=== PATIENT | male | born 1945 | race African-American/Black ===

== ENCOUNTER 2021-04-05 22:57 | Inpatient (IN) | payer MEDICARE ==
[~2021-04-05] VITALS: Ht 175.3 cm; Wt 59.9 kg
[2021-04-05] MEDS ORDERED: ONDANSETRON HCL 4MG/2ML INJ IV STA (23:12)
[2021-04-05] MEDS ORDERED: MANNITOL 20% 250 ML IV ONE (23:15)
[2021-04-05] MEDS ORDERED: NICARDIPINE 100 MG in SODIUM CHLORIDE 0.9% 60 ML IV ONE (23:15)
[2021-04-05] MEDS ORDERED: DEXAMETHASONE 10 MG/ML VIAL IV ONE (23:15)
[2021-04-05] MEDS ORDERED: NICARDIPINE 40 MG/200 ML PREMIX 200 ML IV PRN (23:30)
[2021-04-05] MEDS ORDERED: LEVETIRACETAM 500MG PREMIX 100 ML IV ONE (23:30)
[2021-04-06] VITALS (88 sets, daily range): BP systolic 97–167; BP diastolic 51–76
[2021-04-06 00:14] LABS: BASOPHILS % 0.5 % (0.0-2.0); EOSINOPHILS % 3.9 % (0.0-5.0); HEMATOCRIT. 34.2 % (42.0-52.0); HEMOGLOBIN. 11.3 g/dL (14.0-18.0); LYMPHOCYTES % 36.8 % (20.0-50.0); MEAN CORPUSCULAR HEMOGLOBIN 32.1 pg (28.0-32.0); MEAN CORPUSCULAR VOLUME 96.8 fL (80.0-94.0); MEAN PLATELET VOLUME 9.4 fl (7.4-10.4); NEUTROPHILS % 47.8 % (40.0-76.0); PLATELET 156 x1000/uL (130-400); RED BLOOD CELL COUNT 3.53 mill/uL (4.7-6.1); RED CELL DISTRIBUTION WIDTH 15.5 % (11.6-14.6)
[2021-04-06 00:24] LABS: PROTHROMBIN TIME 10.9 sec (9.6-11.0)
[2021-04-06 00:41] LABS: CHLORIDE 108 mEq/L (98-107)
[2021-04-06] MEDS ORDERED: NICARDIPINE 100 MG in SODIUM CHLORIDE 0.9% 60 ML IV PRN (00:45)
[2021-04-06 00:48] LABS: LDL CHOLESTEROL 73 mg/dL (5-100)
[2021-04-06] MEDS: DEXT 5%/LACTATED RINGERS 1,000 ML IV SCH ×2 (02:01→18:13)
[2021-04-06] MEDS: NICARDIPINE 100 MG in SODIUM CHLORIDE 0.9% 60 ML IV PRN ×3 (02:05→18:12)
[2021-04-06] MEDS: DEXAMETHASONE 4MG/ML 1ML VIAL IV SCH ×4 (05:43→22:59)
[2021-04-06] MEDS ORDERED: LEVETIRACETAM 500MG PREMIX 100 ML IV SCH (09:00)
[2021-04-06 11:01] LABS: HEMATOCRIT 37.4 % (42.0-52.0); HEMOGLOBIN 12.3 g/dL (14.0-18.0); MEAN CORPUSCULAR HEMOGLOBIN 31.7 pg (28.0-32.0); MEAN CORPUSCULAR VOLUME 96.4 fL (80.0-94.0); PLATELET 174 x1000/uL (130-400); RED BLOOD CELL COUNT 3.89 mill/uL (4.7-6.1); RED CELL DISTRIBUTION WIDTH 15.4 % (11.6-14.6)
[2021-04-06 11:13] LABS: CHLORIDE 111 mEq/L (98-107)
[2021-04-06] MEDS: MORPHINE SULFATE 2 MG/ML CPJ (NOT FOR IM USE) IV PRN (15:09)
[2021-04-06] MEDS: LEVETIRACETAM 500MG PREMIX 100 ML IV SCH (20:21)
[2021-04-06] MEDS: ATORVASTATIN CALCIUM 40MG TABLET PO SCH (20:21)
[2021-04-07] VITALS (75 sets, daily range): BP systolic 82–161; BP diastolic 23–75
[2021-04-07] MEDS: DEXAMETHASONE 4MG/ML 1ML VIAL IV SCH ×2 (05:42→12:05)
[2021-04-07 06:01] LABS: BASOPHILS % 0.1 % (0.0-2.0); HEMATOCRIT. 35.7 % (42.0-52.0); HEMOGLOBIN. 11.5 g/dL (14.0-18.0); LYMPHOCYTES % 11.4 % (20.0-50.0); MEAN CORPUSCULAR HEMOGLOBIN 31.4 pg (28.0-32.0); MEAN CORPUSCULAR VOLUME 97.4 fL (80.0-94.0); MEAN PLATELET VOLUME 9.6 fl (7.4-10.4); MONOCYTES % 4.6 % (2.0-8.0); NEUTROPHILS % 83.9 % (40.0-76.0); PLATELET 163 x1000/uL (130-400); RED BLOOD CELL COUNT 3.67 mill/uL (4.7-6.1); RED CELL DISTRIBUTION WIDTH 15.6 % (11.6-14.6)
[2021-04-07 06:03] LABS: CHLORIDE 109 mEq/L (98-107)
[2021-04-07] MEDS: NICARDIPINE 100 MG in SODIUM CHLORIDE 0.9% 60 ML IV PRN ×2 (07:14→15:51)
[2021-04-07] MEDS: MORPHINE SULFATE 2 MG/ML CPJ (NOT FOR IM USE) IV PRN (07:41)
[2021-04-07] MEDS: LEVETIRACETAM 500MG PREMIX 100 ML IV SCH ×2 (09:21→20:55)
[2021-04-07] MEDS ORDERED: HYDRALAZINE 20MG/ML VIAL IV PRN (10:15)
[2021-04-07] MEDS: DEXT 5%/LACTATED RINGERS 1,000 ML IV SCH (11:37)
[2021-04-07] MEDS: MORPHINE SULFATE 4 MG/ML CPJ (NOT FOR IM USE) IV PRN ×5 (12:06→21:04)
[2021-04-07 12:48] LABS: CLARITY URINE CLEAR (CLEAR); COLOR URINE YELLOW (YELLOW); KETONES URINE NEGATIVE (NEGATIVE); LEUKOCYTE ESTERASE URINE NEGATIVE (NEGATIVE); NITRITE URINE NEGATIVE (NEGATIVE); OCCULT BLOOD URINE 2+ (NEGATIVE); PROTEIN URINE TRACE (NEGATIVE); SPECIFIC GRAVITY URINE 1.024 (1.005-1.030); UROBILINOGEN URINE 0.2 E.U./dL (0.2-1.0)
[2021-04-07 13:26] LABS: *AMPHETAMINES SCREEN URINE NEGATIVE (NEGATIVE); *BARBITURATES SCREEN URINE NEGATIVE (NEGATIVE); *BENZODIAZEPINES SCREEN URINE NEGATIVE (NEGATIVE); *COCAINE SCREEN URINE NEGATIVE (NEGATIVE); METHADONE URINE SCREEN NEGATIVE (NEGATIVE); OPIATES URINE SCREEN PRESUMTIVE POSITIVE (NEGATIVE)
[2021-04-07 13:27] LABS: CANNABINOID URINE SCREEN NEGATIVE (NEGATIVE); PHENCYCLIDINE URINE SCREEN NEGATIVE (NEGATIVE)
[2021-04-07] MEDS: ATORVASTATIN CALCIUM 40MG TABLET PO SCH (20:54)
[2021-04-08] VITALS (86 sets, daily range): BP systolic 111–160; BP diastolic 35–70
[2021-04-08] MEDS: NICARDIPINE 100 MG in SODIUM CHLORIDE 0.9% 60 ML IV PRN ×2 (00:26→09:19)
[2021-04-08] MEDS: DEXT 5%/LACTATED RINGERS 1,000 ML IV SCH ×2 (04:33→22:00)
[2021-04-08 05:57] LABS: HEMATOCRIT. 34.3 % (42.0-52.0); HEMOGLOBIN. 11.1 g/dL (14.0-18.0); MEAN CORPUSCULAR HEMOGLOBIN 31.4 pg (28.0-32.0); MEAN CORPUSCULAR VOLUME 97.3 fL (80.0-94.0); MEAN PLATELET VOLUME 9.5 fl (7.4-10.4); PLATELET 163 x1000/uL (130-400); RED BLOOD CELL COUNT 3.53 mill/uL (4.7-6.1); RED CELL DISTRIBUTION WIDTH 15.9 % (11.6-14.6)
[2021-04-08 06:00] LABS: CHLORIDE 110 mEq/L (98-107)
[2021-04-08] MEDS: LEVETIRACETAM 500MG PREMIX 100 ML IV SCH ×2 (09:09→20:19)
[2021-04-08] MEDS ORDERED: CLONIDINE 0.1MG TABLET PO PRN ×2 (10:15→21:45)
[2021-04-08] MEDS: AMLODIPINE 10MG TABLET PO SCH (10:24)
[2021-04-08] MEDS: LOSARTAN POTASSIUM 100 MG TABLET PO SCH (10:24)
[2021-04-08 12:45] LABS: PLATELET ESTIMATE NORMAL
[2021-04-08] MEDS: ATORVASTATIN CALCIUM 40MG TABLET PO SCH (20:19)
[2021-04-08] MEDS: MORPHINE SULFATE 4 MG/ML CPJ (NOT FOR IM USE) IV PRN (20:27)
[2021-04-08] MEDS ORDERED: HYDRALAZINE 20MG/ML VIAL IV PRN (21:45)
[2021-04-09] VITALS (96 sets, daily range): BP systolic 81–143; BP diastolic 40–125
[2021-04-09] MEDS: MORPHINE SULFATE 4 MG/ML CPJ (NOT FOR IM USE) IV PRN ×3 (04:01→11:28)
[2021-04-09] MEDS: NICARDIPINE 100 MG in SODIUM CHLORIDE 0.9% 60 ML IV PRN ×2 (05:58→16:20)
[2021-04-09] MEDS ORDERED: HYDRALAZINE HCL 100MG TABLET PO NR (08:45)
[2021-04-09] MEDS: LOSARTAN POTASSIUM 100 MG TABLET PO SCH (09:05)
[2021-04-09] MEDS: AMLODIPINE 10MG TABLET PO SCH (09:05)
[2021-04-09] MEDS: LEVETIRACETAM 500MG PREMIX 100 ML IV SCH ×2 (09:05→21:11)
[2021-04-09 09:38] LABS: BASOPHILS % 0.3 % (0.0-2.0); HEMATOCRIT. 36.2 % (42.0-52.0); HEMOGLOBIN. 12.3 g/dL (14.0-18.0); LYMPHOCYTES % 8.5 % (20.0-50.0); MEAN CORPUSCULAR HEMOGLOBIN 32.5 pg (28.0-32.0); MEAN PLATELET VOLUME 8.7 fl (7.4-10.4); MONOCYTES % 9.4 % (2.0-8.0); NEUTROPHILS % 81.8 % (40.0-76.0); PLATELET 179 x1000/uL (130-400); RED BLOOD CELL COUNT 3.78 mill/uL (4.7-6.1); RED CELL DISTRIBUTION WIDTH 15.1 % (11.6-14.6)
[2021-04-09 09:46] LABS: CHLORIDE 107 mEq/L (98-107)
[2021-04-09 09:51] LABS: PHOSPHORUS 2.2 mg/dL (2.5-4.9)
[2021-04-09] MEDS: DEXT 5%/LACTATED RINGERS 1,000 ML IV SCH (13:10)
[2021-04-09] MEDS: HYDRALAZINE HCL 100MG TABLET PO SCH ×2 (15:11→22:00)
[2021-04-09] MEDS: ATORVASTATIN CALCIUM 40MG TABLET PO SCH (21:11)
[2021-04-10] VITALS (75 sets, daily range): BP systolic 35–162; BP diastolic 21–103
[2021-04-10] MEDS: HYDRALAZINE HCL 100MG TABLET PO SCH ×3 (05:49→22:00)
[2021-04-10] MEDS: DEXT 5%/LACTATED RINGERS 1,000 ML IV SCH (05:51)
[2021-04-10] MEDS: LEVETIRACETAM 500MG PREMIX 100 ML IV SCH ×2 (08:37→20:23)
[2021-04-10] MEDS: AMLODIPINE 10MG TABLET PO SCH (08:37)
[2021-04-10] MEDS: LOSARTAN POTASSIUM 100 MG TABLET PO SCH (08:38)
[2021-04-10] MEDS ORDERED: CEFTRIAXONE 1 G PREMIX 50 ML IV SCH (09:00)
[2021-04-10] MEDS ORDERED: CEFTRIAXONE 1,000 MG in DEXTROSE 5% WATER 50 ML IV SCH (11:00)
[2021-04-10 11:05] LABS: CLARITY URINE CLEAR (CLEAR); COLOR URINE YELLOW (YELLOW); KETONES URINE NEGATIVE (NEGATIVE); LEUKOCYTE ESTERASE URINE NEGATIVE (NEGATIVE); NITRITE URINE NEGATIVE (NEGATIVE); OCCULT BLOOD URINE TRACE (NEGATIVE); PROTEIN URINE NEGATIVE (NEGATIVE); SPECIFIC GRAVITY URINE 1.003 (1.005-1.030); UROBILINOGEN URINE 0.2 E.U./dL (0.2-1.0)
[2021-04-10] MEDS: ATORVASTATIN CALCIUM 40MG TABLET PO SCH (20:23)
[2021-04-11] VITALS (38 sets, daily range): BP systolic 100–137; BP diastolic 50–85
[2021-04-11 05:08] LABS: BASOPHILS % 0.1 % (0.0-2.0); EOSINOPHILS % 3.1 % (0.0-5.0); HEMATOCRIT. 37.9 % (42.0-52.0); HEMOGLOBIN. 12.4 g/dL (14.0-18.0); LYMPHOCYTES % 21.8 % (20.0-50.0); MEAN CORPUSCULAR HEMOGLOBIN 31.3 pg (28.0-32.0); MEAN CORPUSCULAR VOLUME 95.5 fL (80.0-94.0); MEAN PLATELET VOLUME 8.6 fl (7.4-10.4); MONOCYTES % 13.6 % (2.0-8.0); NEUTROPHILS % 61.4 % (40.0-76.0); PLATELET 179 x1000/uL (130-400); RED BLOOD CELL COUNT 3.97 mill/uL (4.7-6.1); RED CELL DISTRIBUTION WIDTH 15.4 % (11.6-14.6)
[2021-04-11 05:16] LABS: CHLORIDE 106 mEq/L (98-107)
[2021-04-11] MEDS: HYDRALAZINE HCL 100MG TABLET PO SCH ×3 (06:08→21:41)
[2021-04-11] MEDS: LEVETIRACETAM 500MG PREMIX 100 ML IV SCH ×2 (09:15→21:42)
[2021-04-11] MEDS: LOSARTAN POTASSIUM 100 MG TABLET PO SCH (09:15)
[2021-04-11] MEDS: AMLODIPINE 10MG TABLET PO SCH (09:16)
[2021-04-11] MEDS: ATORVASTATIN CALCIUM 40MG TABLET PO SCH (21:42)
[2021-04-12] VITALS (40 sets, daily range): BP systolic 105–158; BP diastolic 33–118
[2021-04-12] MEDS: HYDRALAZINE HCL 100MG TABLET PO SCH ×3 (06:00→23:37)
[2021-04-12] MEDS: AMLODIPINE 10MG TABLET PO SCH (08:36)
[2021-04-12] MEDS: LEVETIRACETAM 500MG PREMIX 100 ML IV SCH ×2 (08:36→20:10)
[2021-04-12] MEDS: LOSARTAN POTASSIUM 100 MG TABLET PO SCH (08:36)
[2021-04-12] MEDS: ATORVASTATIN CALCIUM 40MG TABLET PO SCH (20:10)
[2021-04-13] VITALS (7 sets, daily range): BP systolic 99–127; BP diastolic 55–71
[2021-04-13] MEDS: HYDRALAZINE HCL 100MG TABLET PO SCH ×3 (05:26→21:28)
[2021-04-13] MEDS: AMLODIPINE 10MG TABLET PO SCH (09:11)
[2021-04-13] MEDS: LOSARTAN POTASSIUM 100 MG TABLET PO SCH (09:11)
[2021-04-13] MEDS: LEVETIRACETAM 500MG PREMIX 100 ML IV SCH ×3 (09:12→17:44)
[2021-04-13] MEDS ORDERED: HYDRALAZINE 10 MG in SODIUM CHLORIDE 0.9% 49.5 ML IV PRN (13:30)
[2021-04-13 15:53] LABS: FOLIC ACID (FOLATE) SERUM >20 ng/mL ng/mL (>5.38)
[2021-04-13 16:04] LABS: VITAMIN B12 SERUM 607 pg/mL (211-911)
[2021-04-13] MEDS ORDERED: LEVETIRACETAM 500MG TABLET PO SCH (17:00)
[2021-04-13] MEDS: ATORVASTATIN CALCIUM 40MG TABLET PO SCH (21:29)
== END 2021-04-13 22:04 | DRG 871 ==
LOC: ER 22:57 → MICUSO 23:33 → ENRESERV 04-06 00:50 → 6EST 04-12 22:14
PROVIDERS: ADMIT Internal Medicine; ATTEND Internal Medicine
DX: A41.9 Sepsis, unspecified organism (principal); I60.9 Nontraumatic subarachnoid hemorrhage, unspecified; G82.50 Quadriplegia, unspecified; G93.41 Metabolic encephalopathy; J18.9 Pneumonia, unspecified organism; E44.1 Mild protein-calorie malnutrition; I16.1 Hypertensive emergency; R47.01 Aphasia; N39.0 Urinary tract infection, site not specified; Z68.1 Body mass index [BMI] 19.9 or less, adult; D64.9 Anemia, unspecified; E87.8 Other disorders of electrolyte and fluid balance, not elsewhere classified; E66.9 Obesity, unspecified; E78.00 Pure hypercholesterolemia, unspecified; R13.10 Dysphagia, unspecified; Z79.899 Other long term (current) drug therapy; I10 Essential (primary) hypertension; E11.9 Type 2 diabetes mellitus without complications
CPT/HCPCS: 36415; 70553; 71045; 80048; 80053; 80061; 80305; 81003; 82140; 82306; 82607; 82746; 82962; 83036; 83721; 83735; 84100; 84145; 84484; 85025; 85027; 86850; 86900; 93005; 97116; 97162; 97166; 99291; J0696; J1100; J1953; J2270; J2405; J3490; J7040; J7042; J7050; J7060; A4315

== ENCOUNTER 2021-04-13 22:08 | Inpatient (IN) | payer MEDICARE ==
[~2021-04-13] VITALS: Ht 175.3 cm; Wt 73.0 kg
[2021-04-13 22:08] VITALS: BP 122/68
[2021-04-13] MEDS ORDERED: HYDROCODONE/ACETAMINOPHEN 5/325MG TABLET PO PRN (23:45)
[2021-04-13] MEDS ORDERED: CLONIDINE 0.1MG TABLET PO PRN (23:45)
[2021-04-14] VITALS: BP 122/68
[2021-04-14] MEDS: HYDRALAZINE HCL 100MG TABLET PO SCH ×3 (05:26→21:33)
[2021-04-14 06:35] LABS: CHLORIDE 101 mEq/L (98-107)
[2021-04-14 06:43] LABS: BASOPHILS % 0.3 % (0.0-2.0); EOSINOPHILS % 3.4 % (0.0-5.0); HEMATOCRIT. 36.7 % (42.0-52.0); HEMOGLOBIN. 12.4 g/dL (14.0-18.0); LYMPHOCYTES % 27.5 % (20.0-50.0); MEAN CORPUSCULAR HEMOGLOBIN 32.5 pg (28.0-32.0); MEAN CORPUSCULAR VOLUME 95.8 fL (80.0-94.0); MEAN PLATELET VOLUME 8.6 fl (7.4-10.4); MONOCYTES % 14.8 % (2.0-8.0); PLATELET 190 x1000/uL (130-400); RED BLOOD CELL COUNT 3.83 mill/uL (4.7-6.1)
[2021-04-14 08:00] VITALS: BP 148/77
[2021-04-14] MEDS: LEVETIRACETAM 500MG TABLET PO SCH ×2 (09:38→21:34)
[2021-04-14] MEDS: LOSARTAN POTASSIUM 100 MG TABLET PO SCH (09:38)
[2021-04-14] MEDS: AMLODIPINE 10MG TABLET PO SCH (09:39)
[2021-04-14 17:16] VITALS: BP 175/82
[2021-04-14 17:26] VITALS: BP 109/56
[2021-04-14 20:00] VITALS: BP 103/60
[2021-04-14] MEDS: ATORVASTATIN CALCIUM 40MG TABLET PO SCH (21:34)
[2021-04-15] MEDS: HYDRALAZINE HCL 100MG TABLET PO SCH ×3 (05:57→20:48)
[2021-04-15 08:00] VITALS: BP 134/62
[2021-04-15] MEDS: LOSARTAN POTASSIUM 100 MG TABLET PO SCH (08:35)
[2021-04-15] MEDS: LEVETIRACETAM 500MG TABLET PO SCH ×2 (08:35→20:47)
[2021-04-15] MEDS: AMLODIPINE 10MG TABLET PO SCH (08:35)
[2021-04-15 20:00] VITALS: BP 113/59
[2021-04-15] MEDS: ATORVASTATIN CALCIUM 40MG TABLET PO SCH (20:47)
[2021-04-16] MEDS: HYDRALAZINE HCL 100MG TABLET PO SCH ×3 (05:38→22:28)
[2021-04-16 07:49] VITALS: BP 108/65
[2021-04-16] MEDS: LOSARTAN POTASSIUM 100 MG TABLET PO SCH (09:00)
[2021-04-16] MEDS: AMLODIPINE 10MG TABLET PO SCH (09:00)
[2021-04-16] MEDS: LEVETIRACETAM 500MG TABLET PO SCH ×2 (09:33→22:26)
[2021-04-16 20:00] VITALS: BP 127/57
[2021-04-16] MEDS: ATORVASTATIN CALCIUM 40MG TABLET PO SCH (22:25)
[2021-04-17] MEDS: HYDRALAZINE HCL 100MG TABLET PO SCH ×2 (05:38→14:46)
[2021-04-17 06:23] LABS: BASOPHILS % 0.3 % (0.0-2.0); EOSINOPHILS % 1.4 % (0.0-5.0); HEMATOCRIT. 34.8 % (42.0-52.0); HEMOGLOBIN. 11.6 g/dL (14.0-18.0); LYMPHOCYTES % 22.5 % (20.0-50.0); MEAN CORPUSCULAR HEMOGLOBIN 32.3 pg (28.0-32.0); MEAN CORPUSCULAR VOLUME 97.2 fL (80.0-94.0); MEAN PLATELET VOLUME 8.7 fl (7.4-10.4); MONOCYTES % 13.4 % (2.0-8.0); NEUTROPHILS % 62.4 % (40.0-76.0); PLATELET 200 x1000/uL (130-400); RED BLOOD CELL COUNT 3.58 mill/uL (4.7-6.1)
[2021-04-17 06:35] LABS: CHLORIDE 102 mEq/L (98-107)
[2021-04-17 07:52] VITALS: BP 131/62
[2021-04-17] MEDS: LEVETIRACETAM 500MG TABLET PO SCH ×2 (09:13→20:21)
[2021-04-17] MEDS: AMLODIPINE 10MG TABLET PO SCH (09:14)
[2021-04-17] MEDS: LOSARTAN POTASSIUM 100 MG TABLET PO SCH (09:14)
[2021-04-17] MEDS ORDERED: IOHEXOL-350 100 ML BOTTLE ONE (09:50)
[2021-04-17 20:00] VITALS: BP 117/51
[2021-04-17] MEDS: ATORVASTATIN CALCIUM 40MG TABLET PO SCH (20:22)
[2021-04-17] MEDS: HYDRALAZINE HCL 50MG TABLET PO SCH (21:52)
[2021-04-18] MEDS: HYDRALAZINE HCL 50MG TABLET PO SCH ×3 (05:33→21:28)
[2021-04-18 07:50] VITALS: BP 122/58
[2021-04-18] MEDS: LOSARTAN POTASSIUM 100 MG TABLET PO SCH (08:49)
[2021-04-18] MEDS: LEVETIRACETAM 500MG TABLET PO SCH ×2 (08:50→20:20)
[2021-04-18] MEDS: AMLODIPINE 10MG TABLET PO SCH (08:50)
[2021-04-18 17:06] LABS: 25-HYDROXY VITAMIN D3 24 ng/mL (.)
[2021-04-18 20:00] VITALS: BP 132/70
[2021-04-18] MEDS: ATORVASTATIN CALCIUM 40MG TABLET PO SCH (20:20)
[2021-04-19] MEDS: LACTULOSE 20G/30ML UDC PO SCH ×3 (05:47→21:49)
[2021-04-19] MEDS: HYDRALAZINE HCL 50MG TABLET PO SCH ×3 (05:48→21:46)
[2021-04-19 08:24] VITALS: BP 109/62
[2021-04-19] MEDS: AMLODIPINE 10MG TABLET PO SCH (08:50)
[2021-04-19] MEDS: LEVETIRACETAM 500MG TABLET PO SCH ×2 (08:50→21:45)
[2021-04-19] MEDS: LOSARTAN POTASSIUM 100 MG TABLET PO SCH (08:50)
[2021-04-19] MEDS ORDERED: ERGOCALCIFEROL 50000UNITS CAPSULE PO SCH (10:45)
[2021-04-19 13:05] VITALS: BP 127/58
[2021-04-19 20:00] VITALS: BP 130/58
[2021-04-19] MEDS: ATORVASTATIN CALCIUM 40MG TABLET PO SCH (21:45)
[2021-04-20] MEDS: HYDRALAZINE HCL 50MG TABLET PO SCH ×3 (05:23→21:16)
[2021-04-20 07:40] VITALS: BP 110/43
[2021-04-20] MEDS: LEVETIRACETAM 500MG TABLET PO SCH ×2 (08:33→21:15)
[2021-04-20] MEDS: AMLODIPINE 10MG TABLET PO SCH ×2 (08:34→08:37)
[2021-04-20] MEDS: HYDROCODONE/ACETAMINOPHEN 5/325MG TABLET PO PRN (08:34)
[2021-04-20] MEDS: LOSARTAN POTASSIUM 100 MG TABLET PO SCH (08:34)
[2021-04-20 20:00] VITALS: BP 116/49
[2021-04-20] MEDS: ATORVASTATIN CALCIUM 40MG TABLET PO SCH (21:16)
[2021-04-21] MEDS: HYDRALAZINE HCL 50MG TABLET PO SCH ×3 (05:27→21:35)
[2021-04-21 05:28] VITALS: BP_SYST 113; BP_SYST 118; BP_DIAS 58; BP_DIAS 61
[2021-04-21 06:53] LABS: BASOPHILS % 0.9 % (0.0-2.0); EOSINOPHILS % 2.4 % (0.0-5.0); HEMATOCRIT. 30.8 % (42.0-52.0); HEMOGLOBIN. 10.5 g/dL (14.0-18.0); MEAN CORPUSCULAR HEMOGLOBIN 32.8 pg (28.0-32.0); MEAN CORPUSCULAR VOLUME 95.9 fL (80.0-94.0); MEAN PLATELET VOLUME 7.8 fl (7.4-10.4); MONOCYTES % 12.4 % (2.0-8.0); NEUTROPHILS % 62.3 % (40.0-76.0); PLATELET 214 x1000/uL (130-400); RED BLOOD CELL COUNT 3.21 mill/uL (4.7-6.1); RED CELL DISTRIBUTION WIDTH 14.8 % (11.6-14.6)
[2021-04-21 07:21] LABS: CHLORIDE 102 mEq/L (98-107)
[2021-04-21 08:10] VITALS: BP 122/64
[2021-04-21 08:34] VITALS: BP_SYST 110; BP_SYST 128; BP_DIAS 41; BP_DIAS 60
[2021-04-21 08:39] VITALS: BP 122/63
[2021-04-21] MEDS: LEVETIRACETAM 500MG TABLET PO SCH ×2 (08:41→21:35)
[2021-04-21] MEDS: AMLODIPINE 10MG TABLET PO SCH (08:41)
[2021-04-21] MEDS: LOSARTAN POTASSIUM 100 MG TABLET PO SCH (09:00)
[2021-04-21 12:13] VITALS: BP 114/56
[2021-04-21 20:00] VITALS: BP 113/53
[2021-04-21] MEDS: ATORVASTATIN CALCIUM 40MG TABLET PO SCH (21:35)
[2021-04-22] MEDS: HYDRALAZINE HCL 50MG TABLET PO SCH ×3 (06:00→22:46)
[2021-04-22] MEDS: HYDROCODONE/ACETAMINOPHEN 5/325MG TABLET PO PRN (07:00)
[2021-04-22 08:29] VITALS: BP 105/63
[2021-04-22] MEDS: LOSARTAN POTASSIUM 100 MG TABLET PO SCH (09:00)
[2021-04-22] MEDS: AMLODIPINE 10MG TABLET PO SCH (09:00)
[2021-04-22] MEDS: LEVETIRACETAM 500MG TABLET PO SCH ×2 (09:48→21:53)
[2021-04-22] MEDS ORDERED: LOSA100T3 PO (13:39)
[2021-04-22] MEDS ORDERED: LIP40 PO (13:39)
[2021-04-22] MEDS ORDERED: AMLO10TA80 PO (13:39)
[2021-04-22] MEDS ORDERED: KEPP500 PO (13:39)
[2021-04-22 20:00] VITALS: BP 110/56
[2021-04-22] MEDS: ATORVASTATIN CALCIUM 40MG TABLET PO SCH (21:53)
[2021-04-23 08:00] VITALS: BP 122/52
[2021-04-23] MEDS: LOSARTAN POTASSIUM 100 MG TABLET PO SCH (08:22)
[2021-04-23] MEDS: LEVETIRACETAM 500MG TABLET PO SCH (08:23)
[2021-04-23] MEDS: AMLODIPINE 10MG TABLET PO SCH (08:23)
[2021-04-23] MEDS: HYDRALAZINE HCL 50MG TABLET PO SCH (08:23)
[2021-04-23 11:38] VITALS: BP 126/51
== END 2021-04-23 13:52 | disposition home health service (06) | DRG 64 ==
PROVIDERS: ADMIT Physical Medicine & Rehabilitation Spinal Cord Injury Medicine; ATTEND Internal Medicine
DX: I60.9 Nontraumatic subarachnoid hemorrhage, unspecified (principal); G82.50 Quadriplegia, unspecified; E43 Unspecified severe protein-calorie malnutrition; E87.1 Hypo-osmolality and hyponatremia; G93.40 Encephalopathy, unspecified; R47.01 Aphasia; R47.1 Dysarthria and anarthria; D64.9 Anemia, unspecified; E78.00 Pure hypercholesterolemia, unspecified; E78.5 Hyperlipidemia, unspecified; I10 Essential (primary) hypertension; R13.10 Dysphagia, unspecified
CPT/HCPCS: 36415; 70496; 80048; 80053; 82306; 84134; 84443; 85025; 92523; 92610; 93970; 97110; 97112; 97116; 97162; 97166; 97530; 97535; Q9967

== ENCOUNTER 2024-07-29 09:17 | Emergency (ER) | payer MEDICARE ==
[~2024-07-29] VITALS: Ht 177.8 cm; Wt 68.5 kg
[~2024-07-29 09:17] MED LIST: AMLO10TA80 PO; KEPP500 PO; LIP40 PO; LOSA-415 PO
[2024-07-29 09:31] VITALS: O2SAT 98
[2024-07-29] MEDS ORDERED: TAMS-11 PO (09:38)
[2024-07-29 10:58] LABS: BASOPHILS % 0.5 % (0.0-2.0); EOSINOPHILS % 2.6 % (0.0-5.0); HEMATOCRIT. 34.4 % (42.0-52.0); HEMOGLOBIN. 11.5 g/dL (14.0-18.0); LYMPHOCYTES % 23.8 % (20.0-50.0); MEAN CORPUSCULAR HEMOGLOBIN 33.2 pg (28.0-32.0); MEAN CORPUSCULAR HGB CONC 33.3 g/dL (31.0-37.0); MEAN CORPUSCULAR VOLUME 99.6 fL (80.0-94.0); MEAN PLATELET VOLUME 8.6 fl (7.4-10.4); MONOCYTES % 12.2 % (2.0-8.0); NEUTROPHILS % 60.9 % (40.0-76.0); PLATELET 130 x1000/uL (130-400); RED BLOOD CELL COUNT 3.46 mill/uL (4.7-6.1); RED CELL DISTRIBUTION WIDTH 16.3 % (11.6-14.6); WHITE BLOOD COUNT 5.5 x1000/uL (4.5-11.0)
[2024-07-29 11:10] LABS: PROTHROMBIN TIME 11.3 sec (9.6-11.0)
[2024-07-29 11:12] LABS: CARBON DIOXIDE 28 mEq/L (21-32); CHLORIDE 105 mEq/L (98-107); POTASSIUM 3.9 mEq/L (3.5-5.1); SODIUM 141 mEq/L (136-145)
[2024-07-29 11:13] LABS: CALCIUM 9.2 mg/dL (8.7-10.4)
[2024-07-29 11:17] LABS: CREATININE 1.8 mg/dL (0.6-1.3)
[2024-07-29 11:18] LABS: GLUCOSE 91 mg/dL (70-105); TROPONIN I HIGH SENSITIVITY 6 ng/L (3.0-53); UREA NITROGEN BLOOD 28 mg/dL (9-23)
[2024-07-29 11:19] LABS: ALANINE AMINOTRANSFERASE 12 IU/L (10-49); ALBUMIN 3.9 g/dL (3.2-4.8); ASPARTATE AMINOTRANSFERASE 24 IU/L (<34)
[2024-07-29 11:20] LABS: CLARITY URINE CLEAR (CLEAR); COLOR URINE YELLOW (YELLOW); GLUCOSE URINE NEGATIVE (NEGATIVE); KETONES URINE NEGATIVE (NEGATIVE); LEUKOCYTE ESTERASE URINE NEGATIVE (NEGATIVE); NITRITE URINE NEGATIVE (NEGATIVE); OCCULT BLOOD URINE NEGATIVE (NEGATIVE); PH URINE 5.5 (4.5-8.0); PROTEIN URINE NEGATIVE (NEGATIVE); SPECIFIC GRAVITY URINE 1.012 (1.005-1.030)
[2024-07-29 11:20] LABS: BILIRUBIN DIRECT 0.3 mg/dL (<=3.0); BILIRUBIN TOTAL 0.8 mg/dL (0.1-1.0); CREATINE KINASE 211 IU/L (46-171); PROTEIN TOTAL 6.4 g/dL (6.0-8.3)
[2024-07-29 11:21] LABS: ETHANOL BLOOD < 10 mg/dL (<10)
[2024-07-29 11:42] LABS: *AMPHETAMINES SCREEN URINE NEGATIVE (NEGATIVE); *BARBITURATES SCREEN URINE NEGATIVE (NEGATIVE); *BENZODIAZEPINES SCREEN URINE NEGATIVE (NEGATIVE); *COCAINE SCREEN URINE NEGATIVE (NEGATIVE); METHADONE URINE SCREEN NEGATIVE (NEGATIVE)
[2024-07-29 11:43] LABS: CANNABINOID URINE SCREEN NEGATIVE (NEGATIVE); ECSTASY MDMA SCREEN URINE NEGATIVE (NEGATIVE); OPIATES URINE SCREEN NEGATIVE (NEGATIVE); PHENCYCLIDINE URINE SCREEN NEGATIVE (NEGATIVE)
[2024-07-29] MEDS ORDERED: IOHEXOL-350 100 ML BOTTLE ONE (12:01)
[2024-07-29 12:05] LABS: TROPONIN I HIGH SENSITIVITY 6 ng/L (3.0-53)
[2024-07-29 13:26] VITALS: BP 102/52; PULSE 64; RESP 16; TEMP 37.05852; O2SAT 98
== END 2024-07-29 13:51 | disposition left against medical advice (07) ==
LOC: ER 09:17 → EDBEDREQTM 11:50 → EDBEDREQ 11:50 → CANBEDREQ 13:51 → ER 13:51
DX: R55 Syncope and collapse (principal); I10 Essential (primary) hypertension; Z86.73 Personal history of transient ischemic attack (TIA), and cerebral infarction without residual deficits; Z79.899 Other long term (current) drug therapy
CPT/HCPCS: 80076; 80305; 80048; 81003; 80320; 82550; 83880; 85025; 85610; 84484; 36415; 71045; 70496; 70498; 70450; 93005; 99291; Q9967; G0480